=== PATIENT | female | born 1985 | race African-American/Black ===

== ENCOUNTER 2020-11-03 11:53 | Emergency (ER) | payer SELFPAY ==
[2020-11-03 13:01] VITALS: BP 114/82
--- NOTE | 2020-11-03 13:57 | Event Note ---
ED Screening Note Date of service: 11/03/20 Time: 13:56 ED Screening Note: 34-year-old female with a past medical history of Crohn's presents to the ER today with complaints of severe abdominal pain, nausea and vomiting for the past 3 days and also bright red blood in her stools. This initial assessment/diagnostic orders/clinical plan/treatment(s) is/are subject to change based on patients health status, clinical progression and re- assessment by fellow clinical providers in the ED. Further treatment and workup at subsequent clinical providers discretion. Patient/guardian urged not to elope from the ED as their condition may be serious if not clinically assessed and managed. Initial orders include: Labs including CT abdomen pelvis with IV contrast.
[2020-11-03 14:19] LABS: Basophils % (Auto) 0.3 % (0.0-1.8); Hematocrit 37.2 % (30.3-42.9); Hemoglobin 12.3 gm/dl (10.1-14.3); Lymphocytes # (Auto) 0.8 K/mm3 (1.2-5.4); Lymphocytes % (Auto) 5.1 % (13.4-35.0); Mean Corpuscular HGB Conc 33 % (30-34); Mean Corpuscular Volume 81 fl (79-97); Monocytes % (Auto) 6.8 % (0.0-7.3); Platelet Count 567 K/mm3 (140-440); Red Blood Count 4.56 M/mm3 (3.65-5.03); Red Cell Distribution Width 14.1 % (13.2-15.2)
[2020-11-03 14:43] LABS: Alanine Aminotransferase 5 units/L (7-56); Albumin 3.7 g/dL (3.9-5); Blood Urea Nitrogen 13 mg/dL (7-17); Calcium 8.9 mg/dL (8.4-10.2); Hemolysis Index 31
[2020-11-03 14:44] LABS: BUN/Creatinine Ratio 22
[2020-11-03] MEDS ORDERED: ONDANSETRON 4 MG ODT TAB PO ONE (15:42)
[2020-11-03] MEDS: HYDROcodone/ACETAMINOPHEN 10-325MG TAB PO ONE ×2 (16:37→16:38)
--- NOTE | 2020-11-03 17:14 | Cat Scan Report ---
CT ABDOMEN AND PELVIS WITH CONTRAST HISTORY: Left lower quadrant pain COMPARISON: None TECHNIQUE: Routine abdominal and pelvic CT exam performed following intravenous contrast administrat ion.. All CT scans at this location are performed using CT dose reduction for ALARA by means of autom ated exposure control. FINDINGS: CT ABDOMEN: Lung Bases: No significant abnormality. Liver: No significant abnormality. Biliary: No significant abnormality. Spleen: No significant abnormality. Unenlarged. Pancreas: No significant abnormality. Adrenals: No significant abnormality. Kidneys: No acute findings. Simple cyst in the posterior left kidney. Lymphatics: No lymphadenopathy. Vasculature: No significant abnormality. Bowel/Peritoneum: No significant abnormality. No free air. No free fluid. Appendix not visualized. No pericecal inflammation. CT PELVIC: : Moderately distended urinary bladder. Lymphatics: No lymphadenopathy. Osseous Structures: No aggressive appearing osseous lesions. Additional Findings: None IMPRESSION: 1. No acute findings. 2. Moderately distended urinary bladder of uncertain etiology. Signer Name: Kahlil Melton MD Signed: 11/03/2020 5:10 PM Workstation Name: [id number]
[2020-11-03] MEDS ORDERED: SODIUM CHLORIDE 0.9% 1000 ML 1,000 ML IV ONE (18:39)
[2020-11-03] MEDS ORDERED: KETOROLAC 30 MG/1 ML INJ IV ONE (18:39)
[2020-11-03] MEDS ORDERED: METOCLOPRAMIDE 10 MG/2 ML INJ IV ONE (18:40)
--- NOTE | 2020-11-03 18:40 | Emergency Department Report ---
ED Abdominal Pain HPI - General Chief Complaint: Abdominal Pain Stated Complaint: WEAKNESS PUI?: No Time Seen by Provider: 11/03/20 18:35 Source: patient Mode of arrival: Ambulatory Limitations: No Limitations - History of Present Illness Initial Comments: This is a 34-year-old female with a past medical history of Crohn's disease who presents to ED complaining of abdominal pain that worsened today. Patient also states that she his acid reflux and has been having a bad flareup with a burning sensation in the epigastric region. Patient admits mild nausea vomiting but denies diarrhea. Patient states that she has a history of ovarian cyst and is scheduled for surgery next month. Patient states from time to time her ovarian cyst causes her pain as well. She denies fever, dysuria, chest pain, shortness of breath or any other complaints. . MD Complaint: abdominal pain Severity scale (0 -10): 10 - Related Data Previous Rx's Medication Instructions Recorded Last Taken Type Dicyclomine [Bentyl] 20 mg PO BID #30 tablet 11/03/20 Unknown Rx Famotidine [Pepcid] 20 mg PO BID #30 tablet 11/03/20 Unknown Rx Nitrofurantoin Louisa/M-Cryst 100 mg PO Q12HR #14 capsule 11/03/20 Unknown Rx [Macrobid CAP] Ondansetron [Zofran ODT TAB] 8 mg PO Q12HR #40 tab.rapdis 11/03/20 Unknown Rx Allergies Allergy/AdvReac Type Severity Reaction Status Date / Time No Known Allergies Allergy Unverified 11/03/20 12:26 ED Review of Systems ROS: Stated complaint: WEAKNESS Other details as noted in HPI Comment: All other systems reviewed and negative ED Past Medical Hx - Medications Home Medications: Home Medications Medication Instructions Recorded Confirmed Last Taken Type Dicyclomine [Bentyl] 20 mg PO BID #30 tablet 11/03/20 Unknown Rx Famotidine [Pepcid] 20 mg PO BID #30 tablet 11/03/20 Unknown Rx Nitrofurantoin [place]/M-Cryst 100 mg PO Q12HR #14 capsule 11/03/20 Unknown Rx [Macrobid CAP] Ondansetron [Zofran ODT TAB] 8 mg PO Q12HR #40 tab.rapdis 11/03/20 Unknown Rx ED Physical Exam - General Limitations: No Limitations General appearance: alert, in no apparent distress - Head Head exam: Present: atraumatic, normocephalic - Eye Eye exam: Present: normal appearance - ENT ENT exam: Present: mucous membranes moist - Neck Neck exam: Present: normal inspection - Respiratory Respiratory exam: Present: normal lung sounds bilaterally. Absent: respiratory distress - Cardiovascular Cardiovascular Exam: Present: regular rate, normal rhythm. Absent: systolic murmur, diastolic murmur, rubs, gallop - GI/Abdominal GI/Abdominal exam: Present: soft, distended, normal bowel sounds. Absent: tenderness, guarding, rebound, mass - Extremities Exam Extremities exam: Present: normal inspection, full ROM - Back Exam Back exam: Present: normal inspection - Neurological Exam Neurological exam: Present: alert, oriented X3 - Psychiatric Psychiatric exam: Present: normal affect, normal mood - Skin Skin exam: Present: warm, dry, intact, normal color. Absent: rash ED Course Vital Signs 11/03/20 12:22 Temperature 98.9 F Pulse Rate 92 H Respiratory 20 Rate Blood Pressure 114/82 [Right] O2 Sat by Pulse 98 Oximetry ED Medical Decision Making - Lab Data Result diagrams: 11/03/20 14:08 11/03/20 14:08 Laboratory Last Values WBC 14.9 K/mm3 (4.5-11.0) H 11/03/20 14:08 RBC 4.56 M/mm3 (3.65-5.03) 11/03/20 14:08 Hgb 12.3 gm/dl (10.1-14.3) 11/03/20 14:08 Hct 37.2 % (30.3-42.9) 11/03/20 14:08 MCV 81 fl (79-97) 11/03/20 14:08 MCH 27 pg (28-32) L 11/03/20 14:08 MCHC 33 % (30-34) 11/03/20 14:08 RDW 14.1 % (13.2-15.2) 11/03/20 14:08 Plt Count 567 K/mm3 (140-440) H 11/03/20 14:08 Lymph % (Auto) 5.1 % (13.4-35.0) L 11/03/20 14:08 Louisa % (Auto) 6.8 % (0.0-7.3) 11/03/20 14:08 Eos % (Auto) 0.0 % (0.0-4.3) 11/03/20 14:08 Baso % (Auto) 0.3 % (0.0-1.8) 11/03/20 14:08 Lymph # (Auto) 0.8 K/mm3 (1.2-5.4) L 11/03/20 14:08 Louisa # (Auto) 1.0 K/mm3 (0.0-0.8) H 11/03/20 14:08 Eos # (Auto) 0.0 K/mm3 (0.0-0.4) 11/03/20 14:08 Baso # (Auto) 0.0 K/mm3 (0.0-0.1) 11/03/20 14:08 Seg Neutrophils % 87.8 % (40.0-70.0) H 11/03/20 14:08 Seg Neutrophils # 13.1 K/mm3 (1.8-7.7) H 11/03/20 14:08 Sodium 137 mmol/L (137-145) 11/03/20 14:08 Potassium 3.2 mmol/L (3.6-5.0) L 11/03/20 14:08 Chloride 100.5 mmol/L (98-107) 11/03/20 14:08 Carbon Dioxide 23 mmol/L (22-30) 11/03/20 14:08 Anion Gap 17 mmol/L 11/03/20 14:08 BUN 13 mg/dL (7-17) 11/03/20 14:08 Creatinine 0.6 mg/dL (0.6-1.2) 11/03/20 14:08 Estimated GFR > 60 ml/min 11/03/20 14:08 BUN/Creatinine Ratio 22 % 11/03/20 14:08 Glucose 127 mg/dL (65-100) H 11/03/20 14:08 Calcium 8.9 mg/dL (8.4-10.2) 11/03/20 14:08 Total Bilirubin 0.30 mg/dL (0.1-1.2) 11/03/20 14:08 AST 10 units/L (5-40) 11/03/20 14:08 ALT 5 units/L (7-56) L 11/03/20 14:08 Alkaline Phosphatase 58 units/L (35-129) 11/03/20 14:08 Total Protein 7.7 g/dL (6.3-8.2) 11/03/20 14:08 Albumin 3.7 g/dL (3.9-5) L 11/03/20 14:08 Albumin/Globulin Ratio 0.9 % 11/03/20 14:08 Lipase 12 units/L (13-60) L 11/03/20 14:08 HCG, Qual Negative (Negative) 11/03/20 14:08 - Radiology Data Radiology results: report reviewed, image reviewed CT ABDOMEN AND PELVIS WITH CONTRAST HISTORY: Left lower quadrant pain COMPARISON: None TECHNIQUE: Routine abdominal and pelvic CT exam performed following intravenous contrast administration.. All CT scans at this location are performed using CT dose reduction for ALARA by means of automated exposure control. FINDINGS: CT ABDOMEN: Lung Bases: No significant abnormality. Liver: No significant abnormality. Biliary: No significant abnormality. Spleen: No significant abnormality. Unenlarged. Pancreas: No significant abnormality. Adrenals: No significant abnormality. Kidneys: No acute findings. Simple cyst in the posterior left kidney. Lymphatics: No lymphadenopathy. Vasculature: No significant abnormality. Bowel/Peritoneum: No significant abnormality. No free air. No free fluid. Appendix not visualized. No pericecal inflammation. CT PELVIC: : Moderately distended urinary bladder. Lymphatics: No lymphadenopathy. Osseous Structures: No aggressive appearing osseous lesions. Additional Findings: None IMPRESSION: 1. No acute findings. 2. Moderately distended urinary bladder of uncertain etiology. Signer Name: Kahlil Melton MD Signed: 11/03/2020 5:10 PM Workstation Name: [id number] Transcribed By: SELENA Dictated By: Kahlil Melton MD Electronically Authenticated By: Kahlil Melton MD Signed Date/Time: 11/03/20 1710 - Medical Decision Making This is a 34-year-old female with past medical history of Crohn's and acid reflux who presents with a flareup. Labs are within normal limits. Patient received IV fluids and meds in the ED. Patient reports feeling better after medication. Urinalysis positive for bacteria, leukocyte esterase and WBCs. Will treat oral antibiotics. CT scan shows no abnormal findings. Patient notes that she is scheduled for surgery on November 24 for an ovarian cyst removal. Discussed follow-up with primary care physician as as well as GI. At this time patient is safe for discharge. All labs results discussed with patient. Critical care attestation.: If time is entered above; I have spent that time in minutes in the direct care of this critically ill patient, excluding procedure time. ED Disposition Clinical Impression: GERD (gastroesophageal reflux disease), Crohn's colitis, UTI (urinary tract infection) Disposition: 01 HOME / SELF CARE / HOMELESS Is pt being admited?: No Does the pt Need Aspirin: No Condition: Stable Instructions: Food Choices for Gastroesophageal Reflux Disease, Adult, Gastroesophageal Reflux Disease, Adult, Abdominal Pain (ED), Urinary Tract Infection, Adult Additional Instructions: Make sure to follow up with the primary care physician as discussed. Take all your medications as you've been prescribed. If you have any worsening symptoms or develop new symptoms please return to ED immediately. Prescriptions: Dicyclomine [Bentyl] 20 mg PO BID #30 tablet Nitrofurantoin [place]a/M-Cryst [Macrobid CAP] 100 mg PO Q12HR #14 capsule Famotidine [Pepcid] 20 mg PO BID #30 tablet Ondansetron [Zofran ODT TAB] 8 mg PO Q12HR #40 tab.[email or web address] Referrals: PRIMARY CARE, [Primary Care Provider] - 3-5 Days [facility] [Provider Group] - 3-5 Days Forms: Work/School Release Form(ED) Time of Disposition: 23:46
[2020-11-03] MEDS ORDERED: FAMOTIDINE 20 MG/2 ML INJ IV ONE (19:55)
[2020-11-03 23:26] LABS: Bacteria,Urine 1+ /HPF (Negative); Bilirubin,Urine NEG (Negative); Blood,Urine MOD (Negative); Color,Urine Yellow (Yellow); Mucus,Urine FEW /HPF
== END 2020-11-04 00:20 | disposition home or self-care (01) ==
LOC: ED 11:53
DX: K50.10 Crohn's disease of large intestine without complications (principal); K21.9 Gastro-esophageal reflux disease without esophagitis; N39.0 Urinary tract infection, site not specified; Z79.899 Other long term (current) drug therapy
CPT/HCPCS: 36415; 74177; 80053; 81001; 83690; 84703; 85025; 87086; 96361; 96374; 96375; 99284; J1885; J2765; J7030; Q9967; Q0162